=== PATIENT | female | born 1940 | race Caucasian/White ===

== ENCOUNTER → 2018-08-04 12:53 | Outpatient (CLI) | payer OTHER, SELFPAY ==
--- NOTE | 2018-08-04 | DI.CT.S_ITS ---
PROCEDURE: CT SINUS SCREEN WO CON INDICATIONS: CHRONIC SINUSITIS. RIGHT EAR PAIN TECHNIQUE: Noncontrast 3.0 mm axial images acquired from the frontal sinuses to the mid-sella, with coronal and sagittal reformats. For radiation dose reduction, the following was used: automated exposure control, adjustment of mA and/or kV according to patient size. COMPARISON: None. FINDINGS: Image quality: Excellent. Maxillary Sinuses: No bony remodeling or destruction. Sinuses are clear. Ethmoid Air Cells: No bony remodeling or destruction. Sinuses are clear. Sphenoid Sinuses: No bony remodeling or destruction. Sinuses are clear. Frontal Sinuses: No bony remodeling or destruction. Sinuses are clear. Ostiomeatal Complexes: Ostiomeatal complexes are patent. No Jonathan cells. Miscellaneous: Left frontotemporal craniotomy. Visualized intra-orbital contents are normal. No jose rafael bullosa or paradoxical turbinate curvature. No nasal septal deviation. IMPRESSION: No active sinusitis. Dictated by: Malik Wahl M.D. on 08/04/2018 at 14:01 Approved by: Malik Wahl M.D. on 08/04/2018 at 14:03
== END ==
PROVIDERS: Visit Provider Otolaryngology
DX: J32.9 Chronic sinusitis, unspecified (principal); H92.01 Otalgia, right ear
CPT/HCPCS: 70486; Q9967

== ENCOUNTER → 2020-10-10 15:43 | Outpatient (CLI) | payer MEDICARE, OTHER, SELFPAY ==
--- NOTE | 2020-10-10 | DI.ECHO.S_ITS ---
[facility]---------+ [facility] +---------+ : : [address] : : : : [id number] : : : : Phone: [phone]+ Echocardiogram Report + + :Name: SUSANNA RAYMUNDO Study Date: 10/10/2020 Height: 61 in : :[facility] Weight: 86 lb : : Gender: Female BSA: 1.3 m2 : :: 1940 Age: 80 yrs BP: 169/90 mmHg: :Reason For Study: SYNCOPE AND COLLAPSE : :Ordering Physician: COLLEEN, : :HUDSON Jacobo Performed By: Shanell Heredia : :Referring: HUDSON MACIAS : + + Interpretation Summary The left ventricle is normal in size and wall thickness. Left ventricular systolic function appears normal without focal wall motion abnormalities. The ejection fraction is estimated to be 55-60%. Diastolic parameters suggest a relaxation abnormality of the left ventricle, consistent with probable normal filling pressures. The right ventricle is normal in size and function. The right ventricular systolic pressure is estimated to be at least 22 mmHg based on an estimated right atrial pressure of 3 mm Hg. The left atrial size is normal. Right atrial size is normal. There is mild mitral regurgitation. There is no other significant valvular heart disease. The aortic root is normal size. Procedure: A two-dimensional transthoracic echocardiogram with color flow and Doppler was performed. The study quality was technically adequate. There is no prior echocardiogram noted for this patient. The patient was in sinus rhythm with heart rates between 61-69 bpm during the exam. Left Ventricle: The left ventricle is normal in size and wall thickness. Left ventricular systolic function appears normal without focal wall motion abnormalities. The ejection fraction is estimated to be 55-60%. Diastolic parameters suggest a relaxation abnormality of the left ventricle, consistent with probable normal filling pressures. Right Ventricle: The right ventricle is normal in size and function. Atria: The left atrial size is normal. Right atrial size is normal. There is no Doppler evidence for an interatrial shunt. Mitral Valve: The mitral valve is normal in structure and function. There is mild mitral annular calcification. There is mild mitral regurgitation. Aortic Valve: The aortic valve is trileaflet. The aortic valve opens well. There is no aortic valve stenosis. There is trace aortic regurgitation. Tricuspid Valve: The tricuspid valve is normal in structure and function. There is mild tricuspid regurgitation. The right ventricular systolic pressure is estimated to be at least 22 mmHg based on an estimated right atrial pressure of 3 mm Hg. Pulmonic Valve: The pulmonic valve is not well visualized. There is no pulmonic valvular regurgitation. There is no other significant valvular heart disease. Great Vessels: The aortic root is normal size. The ascending aorta could not be visualized. The IVC is of normal diameter and collapses greater than 50% with a sniff. This suggests a low right atrial pressure of 3 mm Hg. Pericardium/ Pleura There is no pericardial effusion. There is no pleural effusion. MMode/2D Measurements & Calculations LVIDd: 3.7 cm LVOT diam: 1.8 cm LVIDs: 2.4 cm Ao root diam: 2.9 cm FS: 33.5 % Ao Arch Diam (Prox Trans): 2.3 cm EPSS: 0.40 cm IVSd: 0.75 cm LVPWd: 0.68 cm LV alcazar. diameter/BSA (cm/m^2): 2.8 LV sys. diameter/BSA (cm/m^2): 1.9 LA A2 area: 10.3 cm2 RA long axis: 3.9 cm LA A4 area: 13.2 cm2 RA area: 11.7 cm2 LA length (vol): 4.5 cm RA vol: 29.3 ml LA vol: 25.8 ml RA : 22.2 ml/m2 LA vol index: 19.6 ml/m2 IVC diam: 1.5 cm RVD1 (basal): 2.9 cm TAPSE: 2.0 cm Doppler Measurements & Calculations Ao V2 max: 125.6 cm/sec LVOT Max Gentry: 101.1 cm/sec Ao V2 mean: 81.1 cm/sec LV V1 max P.1 mmHg Ao max P.3 mmHg LV V1 VTI: 21.1 cm Ao mean P.1 mmHg VERONICA(I,D): 2.3 cm2 Ao V2 VTI: 24.7 cm VERONICA(V,D): 2.2 cm2 sev ratio: 0.86 VERONICA indexed to BSA (cm^2/m^2): 1.7 MV E max gentry: 72.4 cm/sec TR max gentry: 220.9 cm/sec MV A max gentry: 83.1 cm/sec TR max P.5 mmHg MV E/A: 0.87 PA V2 max: 58.2 cm/sec Med Peak E' Gentry: 5.7 cm/sec PA V2 mean: 36.7 cm/sec E/E' med: 12.8 PA mean P.63 mmHg Lat Peak E' Gentry: 7.7 cm/sec PA pr(Accel): 24.2 mmHg E/E' lat: 9.5 E/e' average: 11.1 MV dec time: 0.21 sec SV(LVOT): 56.6 ml Reading Physician:07:37 PM
== END ==
PROVIDERS: PCP Family Medicine; Referring Provider Family Medicine; Visit Provider Family Medicine
DX: R55 Syncope and collapse (principal)
CPT/HCPCS: 93306

== ENCOUNTER → 2021-02-19 12:05 | Outpatient (CLI) | payer MEDICARE, SELFPAY ==
--- NOTE | 2021-02-19 | DI.US.S_ITS ---
PROCEDURE: US CAROTID DOPPLER BI INDICATIONS: VISION CHANGES TECHNIQUE: Color and pulse Doppler interrogation was performed of both carotid systems, with image documentation and velocity measurements. COMPARISON: None. FINDINGS: Stenosis calculations are based on SRU (Society of Radiologists in Ultrasound) criteria. Right side: Brachial blood pressure: 126/55 mm Hg. Common carotid artery peak systolic velocity: 59 cm/sec. Internal carotid artery peak systolic velocity: 97 cm/sec. Internal carotid artery end diastolic velocity: 39 cm/sec. External carotid artery peak systolic velocity: 107 cm/sec. ICA/CCA peak systolic ratio: 1.7 . Jordan scale imaging description: Mild scattered plaque. Percent internal carotid artery stenosis: Less than 50% . Vertebral artery: Flow direction is antegrade. Left side: Brachial blood pressure: 141/65 mm Hg. Common carotid artery peak systolic velocity: 80 cm/sec. Internal carotid artery peak systolic velocity: 94 cm/sec. Internal carotid artery end diastolic velocity: 16 cm/sec. External carotid artery peak systolic velocity: 49 cm/sec. ICA/CCA peak systolic ratio: 1.2 . Jordan scale imaging description: Mild scattered plaque. Percent internal carotid artery stenosis: Less than 50% . Vertebral artery: Flow direction is antegrade. IMPRESSION: Less than 50% bilateral internal carotid artery stenosis. Dictated by: Gomez Sultana [facility] Interpreted: Joshua Jaramillo MD on 02/24/2021 at 8:44 Approved by: Joshua Jaramillo M.D. on 02/24/2021 at 13:17
== END ==
PROVIDERS: PCP Family Medicine; Referring Provider Family Medicine; Visit Provider Family Medicine
DX: H53.122 Transient visual loss, left eye (principal)
CPT/HCPCS: 93880

== ENCOUNTER → 2021-03-06 09:14 | Outpatient (CLI) | payer MEDICARE, SELFPAY ==
[2021-03-06 09:48] LABS: BUN Creatinine Ratio 26.6 (6-22); Blood Urea Nitrogen 17 mg/dL (7-17); Calcium 9.6 mg/dL (8.4-10.2); Carbon Dioxide 29 mmol/L (22-32); Chloride 102 mmol/L (98-107); Estimated Glomerular Filt Rate > 60.0 mL/min (>60); Glucose 95 mg/dL (80-110); HEMOLYSIS < 15 (0-50); Potassium 4.4 mmol/L (3.4-5.1); Sodium 137 mmol/L (137-145)
--- NOTE | 2021-03-06 11:01 | DI.CT.S_ITS ---
PROCEDURE: CT HEAD/BRAIN WO/W CON INDICATIONS: Progressive change in vision history of meningioma TECHNIQUE: 4.5 mm thick angled axial sections acquired from the foramen magnum to the vertex both before and after the administration of intravenous contrast, with coronal and sagittal reformats. For radiation dose reduction, the following was used: automated exposure control, adjustment of mA and/or kV according to patient size. COMPARISON: [facility], MR, MR BRAIN WITH/WITHOUT CONTRAST, 09/06/2020, 14:24. FINDINGS: Image quality: Excellent. CSF spaces: Basal cisterns are patent. No extra-axial fluid collections. Ventricles are symmetric in size and shape. Brain: No midline shift. No intracranial bleeds or masses. No abnormal intracranial enhancement. There is cerebral volume loss for age. There is periventricular white matter chronic small vessel ischemic change. There is intracranial internal carotid artery atherosclerosis. Skull and face: Calvarium and visualized facial bones appear intact, without suspicious lesions. Sinuses: Visualized sinuses and mastoids are clear. IMPRESSION: Prior left temporal craniotomy, associated encephalomalacia along the undersurface of the left frontal lobe. No acute disease. The history provided indicates prior meningioma resection. On this contrast-enhanced study a definite finding of recurrent meningioma is not seen. Please note that MR scanning provides a more accurate ability to detect early manifestation of recurrent meningioma and should be considered in the setting of unusual symptomatology such as reported above unless clinically not possible. Dictated by: Ace Hurtado M.D. on 03/06/2021 at 11:54 Approved by: Ace Hurtado M.D. on 03/06/2021 at 11:57
== END ==
PROVIDERS: PCP Family Medicine; Referring Provider Family Medicine; Visit Provider Family Medicine
DX: Z01.812 Encounter for preprocedural laboratory examination (principal); H53.9 Unspecified visual disturbance; G93.89 Other specified disorders of brain; Z86.69 Personal history of other diseases of the nervous system and sense organs; Z86.011 Personal history of benign neoplasm of the brain
CPT/HCPCS: 36415; 70470; 80048; Q9967

== ENCOUNTER → 2021-04-17 09:33 | Outpatient (CLI) | payer MEDICARE, SELFPAY ==
[2021-04-17 18:51] LABS: Alanine Aminotransferase 34 IU/L (<35); Albumin 4.2 g/dL (3.5-5.0); Albumin Globulin Ratio 1.6 (1.0-2.8); Alkaline Phosphatase 98 U/L (38-126); Aspartate Aminotransferase 46 IU/L (14-36); BUN Creatinine Ratio 20.3 (6-22); Bilirubin Total 0.7 mg/dL (0.2-1.3); Blood Urea Nitrogen 13 mg/dL (7-17); Calcium 9.3 mg/dL (8.4-10.2); Carbon Dioxide 30 mmol/L (22-32); Chloride 104 mmol/L (98-107); Cholesterol 166 mg/dL (140-199); Estimated Glomerular Filt Rate > 60.0 mL/min (>60); Globulin 2.7 g/dL (1.7-4.1); Glucose 93 mg/dL (80-110); HDL Cholesterol 71 mg/dL (40-60); HEMOLYSIS < 15 (0-50); LDL Cholesterol Calculated 80 mg/dL (<100); Potassium 4.2 mmol/L (3.4-5.1); Sodium 132 mmol/L (137-145); Total Protein 6.9 g/dL (6.3-8.2); Triglycerides 76 mg/dL (35-150)
[2021-04-17 18:52] LABS: Add Manual Diff / Slide Review NO; Basophils Absolute Auto 0 /uL (0-100); Basophils Percent Auto 0.6 % (0-2); Eosinophils Absolute Auto 100 /uL (0-450); Eosinophils Percent Auto 1.4 % (2-4); Hematocrit 39.7 % (36-46); Hemoglobin 13.5 g/dL (12.0-16.0); Lymphocytes Absolute Auto 1500 /uL (1100-4500); Lymphocytes Percent Auto 23.7 % (25-40); Mean Corpuscular HGB Conc 33.9 % (30-36); Mean Corpuscular Hemoglobin 33.9 PG (26-34); Mean Corpuscular Volume 100.1 fL (80-100); Monocytes Absolute Auto 600 /uL (0-900); Neutrophils Absolute Auto 4200 /uL (1500-7000); Neutrophils Percent Auto 65.3 % (50-75); Platelet Count 183 X10^3/uL (150-400); Red Blood Cell Count 3.97 X10^6/uL (4.0-5.2); Red Cell Distribution Width 13.6 % (11.6-14.8); White Blood Cell Count 6.4 X10^3/uL (4.5-11.0)
== END ==
PROVIDERS: PCP Family Medicine; Visit Provider Family Medicine
DX: E78.5 Hyperlipidemia, unspecified (principal); I10 Essential (primary) hypertension
CPT/HCPCS: 80053; 80061; 85025

== ENCOUNTER → 2023-10-28 11:26 | Outpatient (CLI) | payer MEDICARE, SELFPAY ==
--- NOTE | 2023-10-28 | DI.RAD.S_ITS ---
Bone Density Report Name: SUSANNA RAYMUNDO Age: 83 Sex: Female Ethnicity: White Date of : 1940 Indication: postmenopausal; screening for osteoporosis; Referring Provider: HUDSON MACIAS Study: Bone densitometry was performed. Exam Date: October 28, 2023 Accession number: [id number] Bone Density: Region BMD T-score Z-score Classification AP Spine(L1-L4) 0.760 -2.6 0.1 Osteoporosis Femoral Neck (Left) 0.495 -3.2 -0.8 Osteoporosis Total Hip (Left) 0.605 -2.8 -0.6 Osteoporosis Femoral Neck (Right) 0.470 -3.4 -1.1 Osteoporosis Total Hip (Right) 0.574 -3.0 -0.9 Osteoporosis Total Hip Mean 0.590 -2.9 -0.8 Osteoporosis World Health Organization criteria for BMD impression classify patients as: Normal (T-score at or above -1.0), Osteopenia (T-score between -1.0 and -2.5), or Osteoporosis (T-score at or below -2.5). 10-year Fracture Risk: FRAX not reported because: Some T-score for Spine Total or Hip Total or Femoral Neck at or below -2.5 Impression: The patient has osteoporosis, based on the Right Femoral Neck T-score. Discussion: INCREASED RISK OF FRACTURE. BONE DENSITY IS UNDESIRABLY LOW AT ONE OR MORE SKELETAL SITES, CONSISTENT WITH POSTMENOPAUSAL OSTEOPOROSIS. This patient's lowest T-score meets the World Health Organization's (WHO) criteria for osteoporosis at one or more sites (T-score -2.5 or below). In untreated patients, the risk of osteoporotic fracture increases approximately two-fold for each 1.0 SD decrease in T-score. Low bone density is not the only risk factor for fracture; also consider factors such as patient's age, frailty or poor health, risk of falling, risk of injury, previous osteoporotic fracture, family history of osteoporosis, cigarette smoking, low body weight, etc. Not everyone with low bone mineral density has osteoporosis; osteomalacia and other metabolic bone disorders should also be considered. Patients who have osteoporosis should be evaluated for specific diseases and conditions (secondary causes) that may cause or contribute to bone loss. The [place] [employer] Endocrinologists (AACE) and National Osteoporosis Foundation (NOF) recommend pharmacologic intervention for all postmenopausal women whose T-score is in this range. The patient should follow a healthful lifestyle (good nutrition with adequate calcium and vitamin D, and appropriate weight-bearing exercise). Follow-Up: Consider a repeat BMD and Vertebral Fracture Assessment (VFA) exam in 2 years or sooner if medically necessary, to reassess this patient's status. Reported by: LOLIS ROBERTSON M.D. on 10/28/2023 12:16:00 PM.
== END ==
LOC: RAD 11:27
PROVIDERS: PCP Family Medicine; Referring Provider Family Medicine; Visit Provider Family Medicine
DX: M81.0 Age-related osteoporosis without current pathological fracture (principal)
CPT/HCPCS: 77080

== ENCOUNTER → 2024-02-17 13:31 | Outpatient (CLI) | payer MEDICARE, SELFPAY ==
[2024-02-21 21:09] LABS: Fecal Immunochemical Test Negative (Negative)
== END ==
PROVIDERS: PCP Family Medicine; Visit Provider Family Medicine
DX: Z12.11 Encounter for screening for malignant neoplasm of colon (principal)
CPT/HCPCS: 82274

== ENCOUNTER 2025-01-22 18:26 | Emergency (ER) | payer MEDICARE, SELFPAY ==
[2025-01-22 18:36] VITALS: BP 204/81; PULSE 78; RESP 18; TEMP 37.1; O2SAT 98; BMI 16.0
--- NOTE | 2025-01-22 18:42 | EKG_ITS ---
[facility] [address] [place] [address] Test Date: 2025-01-22 Pat Name: Katie Caro Department: [facility] Room: Gender: Female Straw Baler: JONAH ELIZALDE : 1940 Requested By: Order Number: [id number] Reading MD: Kam Whiteside Measurements Intervals [place] Rate: 70 P: 78 MA: 146 QRS: 45 QRSD: 70 T: 35 QT: 358 QTc: 386 Interpretive Statements Normal sinus rhythm Possible Left atrial enlargement Nonspecific ST and T wave abnormality Electronically Signed On 01-23-2025 18:28:42 PST by Kam Whiteside
--- NOTE | 2025-01-22 18:42 | ED.NEUROSD ---
HPI - Neuro Symptoms/Deficit General Chief Complaint: Neuro Symptoms/Deficit Stated Complaint: r/o minor stroke, sent by PCP Time Seen by Provider: 01/22/25 18:32 Source: patient Mode of arrival: Ambulatory History of Present Illness HPI Narrative: Patient is a 84-year-old history of meningioma hypertension hyperlipidemia presenting today request of PCP. She has noticed some slurring of speech ongoing for the last 2 weeks possibly worse over last couple of days. She also reports dizziness every morning. She reports it is much worse when she 1st gets up. She has no nausea or vomiting. No numbness tingling or weakness. She does not have been a ataxia increase in falls. She has chronic right cloudy vision. No facial droop. No prior history of CVA or TIA she has not on any anticoagulation medication but does take aspirin daily On Anticoagulants: No Related Data Home Medications Medication Instructions Recorded Confirmed antiarthritic combination no.2 900 mg PO 02/26/21 04/27/22 mg tablet (glucosamine-chondroitin) aspirin 81 mg tablet,delayed 81 mg PO DAILY 02/26/21 04/27/22 release (Adult Low Dose Aspirin) atorvastatin 10 mg tablet 10 mg PO DAILY 02/26/21 04/27/22 cyanocobalamin (vitamin B-12) 100 100 mcg PO DAILY 02/26/21 04/27/22 mcg tablet multivitamin 1 tab PO DAILY 02/26/21 04/27/22 Previous Rx's Medication Instructions Recorded amlodipine 2.5 mg tablet 2.5 mg PO BEDTIME #90 tabs 02/27/21 lisinopril 20 mg tablet 20 mg PO DAILY #90 tabs 02/27/21 Allergies Allergy/AdvReac Type Severity Reaction Status Date / Time carbamazepine [From TEGRETOL] Allergy Mild Verified 04/27/22 11:08 phenytoin [From DILANTIN] Allergy Mild Verified 04/27/22 11:08 tetracycline [TETRACYCLINE] Allergy Mild Verified 04/27/22 11:08 Review of Systems Hematologic/Lymphatic On Anticoagulants: No Patient History Medical History Hyperlipemia Rosacea (~1992) Back pain (~1992) Mumps Chicken pox Hearing loss (~2018) History of atypical migraine (~1990) Hypertension Visual changes Surgical History Anesthesia Meningioma (~1997) Family History Family/Other Family history of melanoma Father Cancer Mother History of heart disease Grandfather Hypertension Grandmother History of heart disease Social History Smoking Status: Never smoker Smoking Status: Never smoker Exam Initial Vital Signs Initial Vital Signs: Vital Signs Temperature 98.8 F 01/22/25 18:36 Pulse Rate 78 01/22/25 18:36 Respiratory Rate 18 01/22/25 18:36 Blood Pressure 204/81 H 01/22/25 18:36 Pulse Oximetry 98 01/22/25 18:36 Oxygen Delivery Method Room Air 01/22/25 18:36 GENERAL: Alert pleasant well-appearing 84-year-old female and in no acute distress. HEENT: Head atraumatic,EOMI, pupils reactive, face symmetric, moist mucous membranes CARDIOVASCULAR: Regular rate and rhythm without murmurs, rubs or gallops. RESPIRATORY: Breath sounds equal bilaterally, no wheezes rales or rhonchi. ABDOMEN: Soft, nontender. Normoactive bowel sounds all 4 quadrants. No guarding or rebound. EXTREMITIES: Normal range of motion, no clubbing or edema. Neurovascularly intact NEUROLOGICAL: Alert and oriented x4.Normal gait and speech. Cranial nerves II through XII grossly intact. Good [id number], good [id number], strength equal bilaterally, no dysarthria or aphasia, sensation in tact to soft touch bilaterally, no visual changes, no facial droop SKIN: Warm, dry, no laceration, no petechiae, no rashes or lesions. Scores NIH Stroke Scale Level of Conciousness: Alert, keenly responsive Ask month/age: Answers both questions correctly. Open/close eyes, close hand: Performs both tasks correctly Best gaze horizontal: Normal Visual rojas: No visual loss Facial palsy: Normal symetrical movement Left arm drift: No drift for full 10 sec Right arm drift: No drift for full 10 sec Left leg drift: No drift for full 5 sec Right leg drift: No drift for full 5 sec Limb ataxia: Absent Sensory on face/arms/legs: Normal, no sensory loss Best language: No aphasia, normal Dysarthria: Normal Extinction or inattention: No abnormality Total NIH Stroke scale score: 0 Course Orders Ordered: ED Orders 01/22/25 18:42 CT angio head and neck Stat CT head/brain wo con Stat EKG-12 Lead Stat 01/22/25 19:01 Complete Blood Count AUTO DIFF Stat Comprehensive Metabolic Panel Stat Ethanol (ETOH) Stat PTT Partial Thromboplastin Vic Stat Prothrombin Time INR Stat Troponin & CK Cardiac Panel Stat Vital Signs Vital signs: Vital Signs - 8 hr 01/22/25 18:36 01/22/25 20:26 Temperature 98.8 F 98.4 F Pulse Rate 78 66 Respiratory Rate 18 19 Blood Pressure 204/81 H 157/87 H Pulse Oximetry 98 98 Oxygen Delivery Method Room Air Room Air MDM - Neuro Symptoms/Deficit Lab Data 01/22/25 19:01 01/22/25 19:01 Labs: Lab Results 01/22/25 Range/Units 19:01 WBC 6.1 (4.5-11.0) X10^3/uL RBC 3.56 L (4.0-5.2) X10^6/uL Hgb 12.4 (12.0-16.0) g/dL Hct 35.7 L (36-46) % MCV 100.5 H (80-100) fL MCH 34.8 H (26-34) PG MCHC 34.6 (30-36) % RDW 13.9 (11.6-14.8) % Plt Count 169 (150-400) X10^3/uL Neut % (Auto) 60.1 (50-75) % Lymph % (Auto) 29.7 (25-40) % [place] % (Auto) 9.3 (3-14) % Eos % (Auto) 0.5 L (2-4) % Baso % (Auto) 0.4 (0-2) % Neut # (Auto) 3700 (4662-7281) /uL Lymph # (Auto) 1800 (7238-8497) /uL [place] # (Auto) 600 (0-900) /uL Eos # (Auto) 0 (0-450) /uL Baso # (Auto) 0 (0-100) /uL PT 11.7 (9.4-12.5) SECONDS INR 1.0 (0.9-1.3) APTT 30 (25.1-36.5) SECONDS Sodium 140 (137-145) mmol/L Potassium 3.8 (3.4-5.1) mmol/L Chloride 105 (98-107) mmol/L Carbon Dioxide 24 (22-32) mmol/L BUN 24 H (7-17) mg/dL Creatinine 0.76 (0.52-1.04) mg/dL Estimated GFR > 60 (>60) mL/min BUN/Creatinine Ratio 31.6 H (6-22) Glucose 119 H (80-110) mg/dL Calcium 9.1 (8.4-10.2) mg/dL Total Bilirubin 0.4 (0.2-1.3) mg/dL AST 43 H (14-36) IU/L ALT 31 (<35) IU/L Alkaline Phosphatase 87 (38-126) U/L Total Creatine Kinase 79 (30-135) U/L Troponin I < 0.012 (0.01-0.034) ng/mL Total Protein 6.9 (6.3-8.2) g/dL Albumin 4.3 (3.5-5.0) g/dL Globulin 2.6 (1.7-4.1) g/dL Albumin/Globulin Ratio 1.7 (1.0-2.8) Ethyl Alcohol < 10 ( - 10) mg/dL Imaging Data CTA - brain/neck: Radiologist's Impression: PROCEDURE: CT ANGIO HEAD AND NECK INDICATIONS: slurred speech for 2 weeks TECHNIQUE: After the administration of intravenous contrast, 1 mm thick sections acquired from the aortic arch through the [place]. 3-dimensional hrnvjai-ztkyolxeh-muiarjysjs (MIP) and/or volume rendering reformats were acquired of the central intracranial vasculature and neck separately. For radiation dose reduction, the following was used: automated exposure control, adjustment of mA and/or kV according to patient size. COMPARISON: [facility], CT, CT ANGIO HEAD AND NECK, 09/06/2020, 12:30. FINDINGS: Image quality: Diagnostic. BRAIN: See separately dictated CT head report of 01/22/2025. HEAD CT ANGIOGRAPHY: Anterior circulation: Bilateral supraclinoid internal carotid artery stenosis. The flow within the paired anterior cerebral arteries is normal and symmetric. 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 The anterior communicating artery is seen. No aneurysms are seen. Posterior circulation: Mild left Visualized portions of the vertebral arteries demonstrate normal caliber, and join to form a normal appearing basilar artery. Flow within the posterior cerebral arteries is normal and symmetric. No aneurysms are seen. NECK CT ANGIOGRAPHY: Carotid system: The great vessels demonstrate a conventional anatomy as they arise from the aortic arch. The origins of the common carotid arteries appear patent. The common carotid arteries demonstrate normal caliber and courses. The bifurcation regions are both widely patent. The internal carotid arteries demonstrate normal calibers and courses. Posterior circulation: The origins of the vertebral arteries both appear widely patent. The more superior extracranial portions of both vertebral arteries also demonstrate normal courses and calibers. They join to form a normal appearing basilar artery. Soft tissues: Visualized neck soft tissues demonstrate no suspicious abnormalities. Bones: No suspicious bony lesions. Visualized cervical spine appears normally aligned. IMPRESSION: Unchanged appearance of bilateral supraclinoid atherosclerotic narrowing. 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 No acute change. Any quantitative measurements of stenosis were performed using NASCET criteria. Dictated by: Leny Mckenzie M.D. on 01/22/2025 at 19:44 Approved by: Leny Mckenzie M.D. on 01/22/2025 at 19:50 CT scan - head: Radiologist's Impression: PROCEDURE: CT HEAD/BRAIN WO CON INDICATIONS: slurred speech for 2 weeks TECHNIQUE: Noncontrast 4.5 mm thick angled axial sections acquired from the foramen magnum to the vertex, with coronal and sagittal reformats. For radiation dose reduction, the following was used: automated exposure control, adjustment of mA and/or kV according to patient size. COMPARISON: CT, CT HEAD/BRAIN WO/W CON, 03/06/2021, 10:52. [facility], CT, CT ANGIO HEAD AND NECK, 01/22/2025, 18:46. FINDINGS: Image quality: Diagnostic. CSF spaces: Basal cisterns are patent. No extra-axial fluid collections. The ventricles are symmetric in size and shape. Brain: No intracranial bleeds or masses. There is cerebral volume loss for age, with resultant ventricular and sulcal prominence. There are periventricular and deep white matter chronic small vessel ischemic changes. There is intracranial internal carotid artery atherosclerosis. 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 Skull and face: Calvarium and visualized facial bones appear intact, without suspicious lesions. Sinuses: Visualized sinuses and mastoids are clear. IMPRESSION: 1. No acute intracranial process. 2. Moderate atrophy and chronic microvascular ischemic changes. Dictated by: Leny Mckenzie M.D. on 01/22/2025 at 19:42 ECG Data Attestation: I personally reviewed and interpreted this ECG as follows: Interpretation: Normal sinus rhythm rate 70 RI interval 146 QRS 70 QTC [address] changes no priors to compare MDM Narrative Medical decision making narrative: MDM CC: Slurring of speech Complicating co-morbidities: Meningioma hypertension hyperlipidemia Corroborating data: [ ] Data collected from: [ ] Medical records reviewed: Yes Differential considered: TIA CVA intracranial hemorrhage mass Exam documented above, pertinent findings include: Patient is a hernan 84-year-old female NIH stroke scale 0 no obvious facial droop or slurring of speech he has no focal deficits Lab Test results independently reviewed as above. Pertinent findings: WBC 6.1 hemoglobin for 12.4 hematocrit 35.7 platelets 169 Sodium 140 potassium 3.8 chloride 105 carbon dioxide 24 BUN 24 creatinine 0.76 glucose 119 Bilirubin liver enzymes within normal limits Troponin negative Independently reviewed EKG as above Sinus rhythm no ischemia artifact noted Imaging studies independently reviewed: CT head no contrast no intracranial hemorrhage CT angio overall appears unchanged from likely 2020. There is marked atresia of left M1 segment related to prior occlusion and reconstitution but again no acute change Treatments: None Re-evaluations: Patient has no change in focal deficits remains awake alert oriented blood pressure has come down Discussion: Patient 84-year-old female presenting today concerning for stroke. She was certainly out of the window for TNK. She has an NIH stroke scale of 0. She has no acute occlusion. CT angio shows no change she has no new deficits that I appreciate today. Blood work is overall reassuring. At this time I recommend outpatient follow up possible outpatient MRI no need for admission Discharge Plan Departure Patient Disposition: Home Clinical Impression: Brain TIA Instructions: DI for Transient Ischemic Attack Activity Restrictions/Additional Instructions: *You have been diagnosed with possible TIA *What to do: At this time blood work and CT imaging are overall reassuring. At this time it was recommended you follow-up with your primary care provider to have further cholesterol testing and other testing done. May need an MRI scheduled as an outpatient. Please make sure you are continuing to take your aspirin *Continue to take medications as directed Aspirin 81 mg daily *Follow up with your primary care provider in 2-3 days or call [phone] *Return to ER if you should have facial droop weakness, falling speech difficulty or any new, worsening or concerning symptoms Prescriptions: No Action lisinopril 20 mg tablet 20 mg PO DAILY Qty: 90 3RF amlodipine 2.5 mg tablet 2.5 mg PO BEDTIME Qty: 90 3RF aspirin [Adult Low Dose Aspirin] 81 mg tablet,delayed release (DR/EC) 81 mg PO DAILY atorvastatin 10 mg tablet 10 mg PO DAILY cyanocobalamin (vitamin B-12) 100 mcg tablet 100 mcg PO DAILY glucosamine-chondroitin 900 mg tablet PO multivitamin Tablet 1 tab PO DAILY Referrals: Marquis Hameed MD [Primary Care Provider] - Stand Alone Forms: Patient Portal/API/Survey
[2025-01-22 19:11] LABS: Add Manual Diff / Slide Review NO; Basophils Absolute Auto 0 /uL (0-100); Basophils Percent Auto 0.4 % (0-2); Eosinophils Absolute Auto 0 /uL (0-450); Eosinophils Percent Auto 0.5 % (2-4); Hematocrit 35.7 % (36-46); Hemoglobin 12.4 g/dL (12.0-16.0); Lymphocytes Absolute Auto 1800 /uL (1100-4500); Lymphocytes Percent Auto 29.7 % (25-40); Mean Corpuscular HGB Conc 34.6 % (30-36); Mean Corpuscular Hemoglobin 34.8 PG (26-34); Mean Corpuscular Volume 100.5 fL (80-100); Monocytes Absolute Auto 600 /uL (0-900); Monocytes Percent Auto 9.3 % (3-14); Neutrophils Absolute Auto 3700 /uL (1500-7000); Neutrophils Percent Auto 60.1 % (50-75); Platelet Count 169 X10^3/uL (150-400); Red Blood Cell Count 3.56 X10^6/uL (4.0-5.2); Red Cell Distribution Width 13.9 % (11.6-14.8); White Blood Cell Count 6.1 X10^3/uL (4.5-11.0)
[2025-01-22 19:19] LABS: Prothrombin Time 11.7 SECONDS (9.4-12.5)
[2025-01-22 19:21] LABS: PTT Partial Thromboplastin Tim 30 SECONDS (25.1-36.5)
[2025-01-22 19:23] LABS: Alanine Aminotransferase 31 IU/L (<35); Albumin 4.3 g/dL (3.5-5.0); Albumin Globulin Ratio 1.7 (1.0-2.8); Alkaline Phosphatase 87 U/L (38-126); Aspartate Aminotransferase 43 IU/L (14-36); BUN Creatinine Ratio 31.6 (6-22); Bilirubin Total 0.4 mg/dL (0.2-1.3); Blood Urea Nitrogen 24 mg/dL (7-17); Calcium 9.1 mg/dL (8.4-10.2); Carbon Dioxide 24 mmol/L (22-32); Chloride 105 mmol/L (98-107); Creatine Kinase 79 U/L (30-135); Estimated Glomerular Filt Rate > 60 mL/min (>60); Ethanol (ETOH) < 10 mg/dL; Globulin 2.6 g/dL (1.7-4.1); Glucose 119 mg/dL (80-110); HEMOLYSIS < 15 (0-50); Potassium 3.8 mmol/L (3.4-5.1); Sodium 140 mmol/L (137-145); Total Protein 6.9 g/dL (6.3-8.2)
--- NOTE | 2025-01-22 19:26 | PC.NURSE ---
Assumed cares of patient at this time.
[2025-01-22 19:34] LABS: Troponin I < 0.012 ng/mL (0.01-0.034)
[2025-01-22 20:26] VITALS: BP 157/87; PULSE 66; RESP 19; TEMP 36.9; O2SAT 98
== END 2025-01-22 20:27 | disposition home or self-care (01) ==
PROVIDERS: Emergency Provider Emergency Medicine; PCP Family Medicine
DX: G45.9 Transient cerebral ischemic attack, unspecified (principal); R47.81 Slurred speech; R42 Dizziness and giddiness; Z86.011 Personal history of benign neoplasm of the brain; I10 Essential (primary) hypertension; Z79.82 Long term (current) use of aspirin
CPT/HCPCS: 70450; 70496; 70498; 80053; 80320; 82550; 84484; 85025; 85610; 85730; 93005; 99284; Q9967

== ENCOUNTER → 2025-01-26 15:40 | Outpatient (CLI) | payer MEDICARE, OTHER, SELFPAY ==
--- NOTE | 2025-01-26 15:44 | DI.MRI.S_ITS ---
PROCEDURE: MR HEAD/BRAIN WO/W CON INDICATIONS: Transient cerebral ischemic attack, unspecified TECHNIQUE: Noncontrast axial T1 spin echo, axial T2 fast spin echo, sagittal and axial FLAIR, coronal T2 fast spin echo, axial gradient echo, axial diffusion and ADC through the brain. After the administration of contrast, axial and coronal and sagittal T1 spin echo with fat saturation through the brain. COMPARISON: [facility], MR, MR BRAIN WITH/WITHOUT CONTRAST, 09/06/2020, 14:24. [facility], CT, CT HEAD/BRAIN WO CON, 01/22/2025, 18:46. [facility], CT, CT ANGIO HEAD AND NECK, 01/22/2025, 18:46. [facility], CT, CT HEAD/BRAIN WO/W CON, 03/06/2021, 10:52. FINDINGS: Image quality: Excellent. CSF spaces: Basal cisterns are patent. No extra-axial fluid collections. Ventricles are normal in size and shape. Brain: Mild foci of abnormal enhancement can be seen within the left frontal lobe laterally, as on series 13, image 120. No significant associated edema can be seen. This process measures up to 1 cm. No midline shift. There is cerebral volume loss for age. There is periventricular white matter chronic small vessel ischemic change. The brainstem appears normal. Focal encephalomalacia can be seen involving the inferior medial frontal lobes, left worse than right. Potential prior hemorrhage can be seen within this region. A few mild foci of hemorrhage can be seen elsewhere. On diffusion-weighted imaging, no significant abnormal signal can be seen. Normal intravascular flow voids are present. Skull and face: Left frontal craniotomy change can be seen. Calvarial marrow is normal in signal. Orbits appear normal. Sinuses: Sinuses and mastoids appear clear. IMPRESSION: Mild foci of abnormal diffusion-weighted signal seen within the left frontal lobe, which are new compared to 2020. Differential diagnosis includes subacute infarction (with a hypervascular gliotic response) and neoplasm, including metastatic disease. - As a conservative measure, please consider a follow-up brain post-contrast brain MRI in 4-6 weeks for further evaluation. Left frontal craniotomy change can be seen. Please correlate with known patient history. Dictated by: Kahlil Fowler M.D. on 01/26/2025 at 16:49 Approved by: Kahlil Fowler M.D. on 01/26/2025 at 16:56
== END ==
PROVIDERS: PCP Family Medicine; Referring Provider Family Medicine; Visit Provider Family Medicine
DX: R47.9 Unspecified speech disturbances (principal); G45.9 Transient cerebral ischemic attack, unspecified; G93.89 Other specified disorders of brain; Z86.011 Personal history of benign neoplasm of the brain
CPT/HCPCS: 70553; A9579

== ENCOUNTER → 2025-02-28 11:51 | Outpatient (CLI) | payer MEDICARE, OTHER, SELFPAY ==
--- NOTE | 2025-02-28 12:33 | DI.MRI.S_ITS ---
PROCEDURE: MR HEAD/BRAIN WO/W CON INDICATIONS: F/U PRIOR IMAGING,ABNORMAL MRI BRAIN TECHNIQUE: Noncontrast axial T1 spin echo, axial T2 fast spin echo, sagittal and axial FLAIR, coronal T2 fast spin echo, axial gradient echo, axial diffusion and ADC through the brain. After the administration of contrast, axial and coronal and sagittal T1 spin echo with fat saturation through the brain. COMPARISON: [facility], CT, CT HEAD/BRAIN WO CON, 01/22/2025, 18:46. [facility], CT, CT ANGIO HEAD AND NECK, 01/22/2025, 18:46. [facility], MR, MR HEAD/BRAIN WO/W CON, 01/26/2025, 16:37. [facility], MR, MR BRAIN WITH/WITHOUT CONTRAST, 09/06/2020, 14:24. FINDINGS: Image quality: Excellent. CSF spaces: Basal cisterns are patent. No extra-axial fluid collections. Ventricles are normal in size and shape. Brain: Within the superolateral aspect of the left frontal lobe, there is again seen a mild degree of enhancement. The degree of enhancement is clearly improved compared to the prior examination. No new masses or areas of abnormal enhancement can be seen. Focal volume loss with encephalomalacia can be seen involving the inferior medial frontal lobes, left worse than right. A few scattered foci of prior brain hemorrhage can be seen, including at these sites. Prior hemorrhage versus calcification can be seen involving the basal ganglia. These findings are similar to prior studies. No midline shift. There is cerebral volume loss for age. There is periventricular white matter chronic small vessel ischemic change. The brainstem appears normal. Diffusion-weighted images demonstrate no acute infarct. Normal intravascular flow voids are present. Skull and face: Left-sided craniotomy change can be seen. Calvarial marrow is normal in signal. Orbits appear normal. Sinuses: Sinuses and mastoids appear clear. IMPRESSION: There is a slight amount of enhancement seen within the left frontal lobe superiorly and laterally. The degree of enhancement is clearly improved compared to the prior MRI examination. Given the improvement over 1 month time, this is felt most likely be related to a subacute, remodeling focal infarction. Prior left frontal craniotomy change. Stable focal volume loss seen involving the inferior medial frontal lobes. Prior trauma is suspected. Dictated by: Kahlil Fowler M.D. on 02/28/2025 at 13:09 Approved by: Kahlli Fowler M.D. on 02/28/2025 at 13:14
== END ==
PROVIDERS: PCP Family Medicine; Referring Provider Family Medicine; Visit Provider Family Medicine
DX: R90.89 Other abnormal findings on diagnostic imaging of central nervous system (principal)
CPT/HCPCS: 70553; A9579

== ENCOUNTER → 2025-11-05 11:11 | Outpatient (CLI) | payer MEDICARE, OTHER, SELFPAY ==
--- NOTE | 2025-11-05 11:13 | DI.RAD.S_ITS ---
PROCEDURE: XR DEXA AXIAL SKELETON INDICATIONS: postmenopausal osteoporosis COMPARISON: [facility], , XR DEXA AXIAL SKELETON, 10/28/2023, 11:49. FINDINGS: Lumbar Spine: Bone mineral density 0.807 g/cm2, T score -2.2, previously 0.760 and -2.6 respectively. Left Femoral Neck: Bone mineral density is 0.502 g/cm2, T score -3.1. Left Hip: Bone mineral density is 0.601 g/cm2, T score -2.8, no significant change from prior. Fracture Risk Calculation (when applicable): 10-year fracture risk of a major osteoporotic fracture 24 percent and of a hip fracture 10 percent. (T score greater or equal to -1.0 to: NORMAL) (T score from -1.1 to -2.4: OSTEOPENIA) (T score less than or equal to -2.5: OSTEOPOROSIS) IMPRESSION: Osteoporosis Follow-up guidelines as follows: Osteoporosis: Consider a repeat DEXA and Vertebral Fracture Assessment (VFA) exam in 2 years or sooner if medically necessary, to reassess this patient's status. Osteopenia: Consider a repeat DEXA in 2-3 years to reassess this patient's status, or if there is a new clinical indication. Normal: Consider a repeat DEXA in 5 years or sooner, or if there is a new clinical indication. All treatment decisions require clinical judgment and consideration of individual patient factors, including patient preferences, comorbidities, previous drug use, risk factors not captured in the FRAX model (e.g., frailty, falls, vitamin D deficiency, increased bone turnover, interval significant decline in bone density ) and possible under- or over-estimation of fracture risk by FRAX. In addition, the NOF Guide recommends that FDA-approved medical therapies be considered in postmenopausal women and men age >= 50 years with a: * Hip or vertebral (clinical or morphometric) fracture * T-score of <=-2.5 at the spine or hip * Ten-year fracture probability by FRAX of >= 3% for hip fracture or >=20% for major osteoporotic fracture. Dictated by: Iron Bonilla M.D. on 11/05/2025 at 13:16 Approved by: Iron Bonilla M.D. on 11/05/2025 at 13:18
== END ==
LOC: RAD 11:13
PROVIDERS: PCP Family Medicine; Referring Provider Family Medicine; Visit Provider Family Medicine
DX: M81.0 Age-related osteoporosis without current pathological fracture (principal)
CPT/HCPCS: 77080